=== PATIENT | male | born 1940 | race American Indian/Alaskan Native ===

== ENCOUNTER 2018-08-08 07:25 | Day surgery (SDC) | payer MEDICARE, BC ==
[2018-08-08 07:54] VITALS: BMI 24.4
[2018-08-08] MEDS ORDERED: Midazolam 2 MG/2 ML VIAL ONE (09:19)
[2018-08-08] MEDS ORDERED: Propofol 10 mg/ml Inj (20 ML) ONE ×2 (09:19→10:36)
[2018-08-08] MEDS ORDERED: Lactated Ringer's 500 ML IV ONE ×2 (09:21→10:10)
[2018-08-08 10:49] VITALS: TEMP 97
[2018-08-08 11:25] VITALS: RESP 18; O2SAT 100
[2018-08-08 13:10] VITALS: BP 141/96; PULSE 62
== END 2018-08-08 11:45 | disposition home or self-care (01) ==
LOC: C.ENDO 07:25
PROVIDERS: ATTEND Internal Medicine Gastroenterology
DX: Z12.11 Encounter for screening for malignant neoplasm of colon (principal); D12.2 Benign neoplasm of ascending colon; D12.4 Benign neoplasm of descending colon; D12.5 Benign neoplasm of sigmoid colon; D12.3 Benign neoplasm of transverse colon; K64.8 Other hemorrhoids
CPT/HCPCS: 45380; 45385; 88305; J2001; J2250; J2704; J7120